=== PATIENT | male | born 1960 | race Two or more races ===

== ENCOUNTER 2017-06-20 00:03 | Inpatient (IN) | payer MEDICAID, OTHER ==
[~2017-06-20] VITALS: Ht 180.3 cm; Wt 96.2 kg
--- NOTE | 2017-06-20 00:20 | NUR ---
PT BIB RA WITH A C/O GI BLEED. PT STATED THAT IT STARTED 3 DAYS AGO AND NOW GETTING WORSE. PER PT, SABRA BLOOD NOTED IN STOOL. PT AMBULATED TO BED #12 AND WAS TRIAGED. PT WAS PLACED ON THE MONITOR AND CONTINUOUS PULSE OX. 18G IV STARTED IN [facility] AND BLOOD WAS DRAWN. SAMPLES SENT TO LAB. PT APPEARS PALE AND WEAK.
[2017-06-20] MEDS ORDERED: IV NS 0.9% 1,000 ML BAG IV ONE (00:30)
--- NOTE | 2017-06-20 00:30 | NUR ---
PT STATED THAT HE HAD TO GO TO THE BATHROOM. PT WAS DISCONNECTED FROM THE MONITOR AND WAS ASSISTED TO THE BATHROOM. PT'S WENT INTO THE BATHROOM WITH THE PT.
[2017-06-20 00:36] LABS: BASOPHILS # (AUTO) 0.1 /CMM (0.0-0.2); BASOPHILS % (AUTO) 0.7 % (0.0-2.0); HEMATOCRIT 37 % (39-51); HEMOGLOBIN 12.4 g/dL (13.5-17.5); LYMPHOCYTES # (AUTO) 5.6 /CMM (0.8-4.8); LYMPHOCYTES % (AUTO) 49.3 % (20.0-44.0); MEAN CORPUSCULAR HGB CONC 34 g/dl (31.0-36.0); MEAN CORPUSCULAR VOLUME 84 fL (80-96); MONOCYTES # (AUTO) 0.9 /CMM (0.1-1.30); MONOCYTES % (AUTO) 7.8 % (2.0-12.0); NEUTROPHILS # (AUTO) 4.5 /CMM (1.8-8.9); NEUTROPHILS % (AUTO) 40.2 % (43.0-81.0); PLATELET COUNT (AUTO) 340 /CMM (150-450); RDW COEFFICIENT OF VARIATION 13.7 (11.5-15.0); RED BLOOD CELL COUNT(AUTO) 4.37 MIL/uL (4.5-6.0); WHITE BLOOD COUNT (AUTO) 11.3 K/uL (4.3-11.0)
[2017-06-20 00:50] LABS: INR 0.96 (0.87-1.13)
[2017-06-20 00:52] LABS: CREATININE 1.2 mg/dL (0.6-1.3); POTASSIUM 3.8 mmol/L (3.5-5.1)
[2017-06-20 00:56] LABS: ALBUMIN 3.6 g/dL (3.4-5.0); BILIRUBIN,DIRECT 0.1 mg/dL (0.0-0.2); BILIRUBIN,TOTAL 0.2 mg/dL (0.2-1.0); TOTAL PROTEIN, SERUM 7.6 g/dL (6.4-8.2)
[2017-06-20] MEDS ORDERED: PANTOPRAZOLE 40 MG VIAL ONE (00:57)
[2017-06-20] MEDS ORDERED: PANTOPRAZOLE 80 MG in IV NS 0.9% 500 ML IV PRN ×2 (01:00→03:00)
[2017-06-20] MEDS ORDERED: PANTOPRAZOLE 80 MG in IV NS 0.9% 100 ML IV ONE (01:00)
--- NOTE | 2017-06-20 01:30 | NUR ---
DR. FREEMAN CALLED. LEFT MESSAGE
[2017-06-20] MEDS ORDERED: MAGNESIUM HYDROXIDE 30 ML UDC PO PRN (03:00)
[2017-06-20] MEDS ORDERED: MAG HYDROX/AL HYDROX/SIMETH 30 ML UDC PO PRN (03:00)
[2017-06-20] MEDS ORDERED: Z GUARD REMEDY 2 OZ OINT TP PRN (03:00)
[2017-06-20] MEDS ORDERED: ONDANSETRON HCL/PF 4 MG/2 ML VIAL IVP PRN (03:00)
[2017-06-20] MEDS ORDERED: HYDROCODONE/APAP 5/325MG 1 EACH TABLET PO PRN (03:00)
[2017-06-20] MEDS ORDERED: ACETAMINOPHEN 325 MG TABLET PO PRN (03:00)
[2017-06-20] MEDS ORDERED: ZOLPIDEM TARTRATE 5 MG TABLET PO PRN (03:00)
[2017-06-20] MEDS ORDERED: hydrALAZINE HCL 25 MG TABLET PO PRN (03:00)
--- NOTE | 2017-06-20 03:17 | NUR ---
pt is going to nuclear medicine for scan
[2017-06-20] MEDS ORDERED: NS 0.9% IV PRN (03:20)
[2017-06-20] MEDS ORDERED: PANTOPRAZOLE IV PRN (03:20)
[2017-06-20] MEDS ORDERED: HEPARIN SODIUM, PORCINE 5000 UNITS/1 ML VIAL ONE (03:33)
--- NOTE | 2017-06-20 03:38 | NUR ---
100 units Heparin pulled up in syringe for Nuclear study and given to [facility].
[2017-06-20] MEDS ORDERED: HEPARIN-LOCK FLUSH PORCINE PF 10 UNITS/1 ML (10 ML)DISP.SYRIN IV ONE (04:00)
[2017-06-20 05:45] VITALS: BP 147/88
--- NOTE | 2017-06-20 05:45 | NUR ---
PT RETURNED FROM THE NUCLEAR MEDICINE STUDY VIA GURNEY. PT WAS THEN TRANSPORTED TO ROOM 118-2 PER PROTOCOL.
--- NOTE | 2017-06-20 05:45 | NUR ---
GENERAL LEDGER BOOKKEEPER ADMITTING NOTES: ADMITTED A 57 YO MALE PATIENT WHO WAS SEEN IN THE ER DUE TO SABRA/ BRIGHT RED BLOODY STOOLS FOR THE PAST 3 DAYS. PATIENT WAS BROUGHT TO TELE FLOOR VIA RADHA YAÑEZ, ON ROOM AIR, BREATHING EVEN AND UNLABORED. BREATH SOUNDS CLEAR TO AUSCULTATION. ON TELE MONITOR: SINUS RHYTHM AT RATE OF 64. PATIENT APPEARS CALM AND IN NO DISTRESS. DENIES PAIN OR DIZZINESS, ONLY COMPLAINS OF BEING HUNGRY. PIV OVER RAC G 18 INTACT AND INFUSING WELL WITH PROTONIX DRIP (80 MG CONCENTRATION) RUNNING AT 25 ML/HR, STARTED IN ER. PATIENT HAS ANOTHER PIV OVER LAC G 20 INTACT AND PATENT TO FLUSH. ADMITTING CARE DONE. PROVIDED FOR COMFORT AND SAFETY. BED IN LOWEST AND LOCKED POSITION, SIDERAILS UP X 3, CALL LIGHT WITHIN REACH. MAINTAINED ON CLEAR LIQS. GIRLFRIEND/ POA RANI AT BEDSIDE. WILL CONT TO MONITOR.
[2017-06-20 06:00] VITALS: BP 147/88
[2017-06-20] MEDS: IV NS 0.9% 1,000 ML IV PRN (06:01)
--- NOTE | 2017-06-20 06:51 | NUR ---
LITURGICAL MUSIC DIRECTOR CLOSING NOTES: PATIENT IN BED, AOX4, ON ROOM AIR, BREATHING EVEN AND UNLABORED. APPEARS CALM AND IN NO DISTRESS, DENIES PAIN. ON TELE MONITORING: SR AT RATE OF 60S. PIV OVER RAC G18 INTACT AND INFUSING WELL WITH NS RUNNING AT 75 ML/HR AND NS RUNNING AT 75 ML/HR. MAINTAINED ON BEDREST. PROVIDED FOR COMFORT AND SAFETY. BED IN LOWEST AND LOCKED POSITION, SIDERAILS UP X 3, CALL LIGHT WITHIN REACH. WILL ENDORSE TO AM RN FOR SHAHZAD.
--- NOTE | 2017-06-20 07:12 | NUR ---
RN INITIAL NOTES: REC'D PT ASLEEP ON BED, A/O X 4, EASILY AROUSABLE. ON ROOM AIR, NOT IN ANY RESPIRATORY DISTRESS. ON TELEMONITOR, SR 64BPM. HAS 2 IV LINE ACCESS: R AC G18, PL W/ NS X 75 CC/HR AND PROTONIX DRIP X 25 CC/HR INFUSING WELL. L AC G20, SL FLUSHING WELL, BOTH NO S/SX OF INFECTION/INFILTRATION NOTED. PROVIDED COMFORT & SAFETY MEASURES. BED KEPT LOW & IN LOCKED POS. CALL LIGHT PLACED W/IN REACH. WILL CONTINUE TO MONITOR & ATTEND PT NEEDS.
[2017-06-20 08:00] VITALS: BP 155/75
[2017-06-20] MEDS ORDERED: MAGNESIUM CITRATE 296 ML BOTTLE PO ONE (10:30)
[2017-06-20] MEDS ORDERED: NA PHOS,M-B/NA PHOS,DI-BA 1 EA ENEMA RC PRN (10:30)
[2017-06-20] MEDS ORDERED: PEG 3350/NA SULF,BICARB,CL/KCL 4,000 ML BOTTLE PO ONE (10:30)
--- NOTE | 2017-06-20 10:30 | NUR ---
RN NOTES: CARRIED OUT ORDERS FROM RADHA COLLINS. PT FOR EGD & COLONOSCOPY. CONSENT SIGNED BY PT W/ VERBALIZATION OF UNDERSTANDING ABOUT THE PROCEDURE. BOWEL PREPARATION STARTED. INSTRUCTED PT NEED TO FINISH BOWEL PREP MEDS BEFORE 2PM. CXR, ECG & UA ORDERED STAT W/ KARINA'S APPROVAL, IN PREP FOR PROCEDURE.
[2017-06-20 11:38] LABS: BASOPHILS # (AUTO) 0.1 /CMM (0.0-0.2); BASOPHILS % (AUTO) 0.7 % (0.0-2.0); EOSINOPHILS % (AUTO) 1.3 % (0.0-6.0); HEMATOCRIT 31 % (39-51); HEMOGLOBIN 10.4 g/dL (13.5-17.5); LYMPHOCYTES # (AUTO) 3.5 /CMM (0.8-4.8); LYMPHOCYTES % (AUTO) 40.6 % (20.0-44.0); MEAN CORPUSCULAR HGB CONC 34 g/dl (31.0-36.0); MEAN CORPUSCULAR VOLUME 83 fL (80-96); MONOCYTES # (AUTO) 0.6 /CMM (0.1-1.30); MONOCYTES % (AUTO) 7.4 % (2.0-12.0); NEUTROPHILS # (AUTO) 4.3 /CMM (1.8-8.9); PLATELET COUNT (AUTO) 283 /CMM (150-450); RDW COEFFICIENT OF VARIATION 13.6 (11.5-15.0); RED BLOOD CELL COUNT(AUTO) 3.68 MIL/uL (4.5-6.0); WHITE BLOOD COUNT (AUTO) 8.6 K/uL (4.3-11.0)
[2017-06-20 12:33] LABS: IRON, SERUM 45 ug/dl (50-175); TOTAL IRON BINDING CAPACITY 347 ug/dl (250-450)
--- NOTE | 2017-06-20 13:00 | NUR ---
RN NOTES: PT SEEN & EXAMINED BY RADHA COLLINS. PER INSPECTOR WATCH PARTS ECG/COLONOSCOPY SCHED TOMORROW AM AT 0730h. PT & FAMILY ARE AWARE. OKAY TO ORDER CLEAR LIQUID DIET FOR NOW THEN NPO POST MN. CONTINUE BOWEL PREP & NOTIFY INSPECTOR WATCH PARTS IF PT'S BM STILL NOT CLEAR DESPITE OF MAG CITRATE & GOLYTELY. GIVE PRN FLEET ENEMA IF STILL NOT CLEAR.
[2017-06-20 13:21] LABS: APPEARANCE,URINE CLEAR (CLEAR); BILIRUBIN,URINE NEGATIVE (NEGATIVE); BLOOD, URINE NEGATIVE Ery/uL (NEGATIVE); COLOR,URINE YELLOW (YELLOW); KETONES,URINE NEGATIVE (NEGATIVE); LEUKOCYTE ESTERASE ,URINE NEGATIVE (NEGATIVE); NITRITE, URINE NEGATIVE (NEGATIVE); PROTEIN,URINE NEGATIVE (NEGATIVE); UGLUCOSE NEGATIVE (NEGATIVE); UROBILINOGEN,URINE 0.2 EU/dL (0.2)
[2017-06-20] MEDS: PANTOPRAZOLE 40 MG VIAL IV SCH (13:33)
[2017-06-20 15:18] LABS: BASOPHILS % (AUTO) 0.4 % (0.0-2.0); EOSINOPHILS % (AUTO) 1.8 % (0.0-6.0); HEMATOCRIT 29 % (39-51); HEMOGLOBIN 9.8 g/dL (13.5-17.5); LYMPHOCYTES # (AUTO) 3.2 /CMM (0.8-4.8); MEAN CORPUSCULAR HGB CONC 34 g/dl (31.0-36.0); MEAN CORPUSCULAR VOLUME 84 fL (80-96); MONOCYTES # (AUTO) 0.6 /CMM (0.1-1.30); MONOCYTES % (AUTO) 7.2 % (2.0-12.0); NEUTROPHILS # (AUTO) 4.2 /CMM (1.8-8.9); NEUTROPHILS % (AUTO) 51.6 % (43.0-81.0); PLATELET COUNT (AUTO) 257 /CMM (150-450); RDW COEFFICIENT OF VARIATION 13.5 (11.5-15.0); RED BLOOD CELL COUNT(AUTO) 3.48 MIL/uL (4.5-6.0); WHITE BLOOD COUNT (AUTO) 8.1 K/uL (4.3-11.0)
[2017-06-20 15:57] LABS: OCCULT BLOOD STOOL NEGATIVE (NEGATIVE)
[2017-06-20 16:00] VITALS: BP 161/93
--- NOTE | 2017-06-20 18:49 | NUR ---
RN CLOSING NOTES: NO ACUTE CHANGES NOTED W/IN SHIFT. PT TOLERATED ROOM AIR, NOT IN ANY RESPIRATORY DISTRESS. OFF TELEMONITOR. 2 IV LINE ACCESS BOTH KEPT PATENT & INTACT: L AC G20, SL & R AC G18, PL W/ NS X 75 CC/HR (PT REFUSED TO BE CONNECTED ON IVF AT THIS TIME). PT INSTRUCTED TO BE NPO POST MN D/T SCHED EGD & COLONOSCOPY JUAN CARLOS AM. PT ALSO INSTRUCTED TO FINISH GOLYTELY AND TO INFORM RN RE: BM IF CLEAR OR NOT. PT VERBALIZED UNDERSTANDING. KEPT WELL RESTED. NEEDS ATTENDED. BED KEPT LOW & IN LOCKED POS. CALL LIGHT PLACED W/IN REACH. WILL ENDORSE TO PM RN FOR SHAHZAD.
[2017-06-20 20:00] VITALS: BP_SYST 134; BP_SYST 154; BP_DIAS 78; BP_DIAS 87
--- NOTE | 2017-06-20 20:00 | NUR ---
RN NOTES PATIENT IS ALERT AND ORIENTED X4, CALM, NO SOB, ON ROOM AIR, NO COMPLAIN OF PAIN, GOING IN AND OUT OF TOILET, ON ELSY FOR EGD/COLONOSCOPY IN AM FOR GI BLEEDING, HAS CBC Q4HRS, PENDING ORDER OF BLOOD TRANSFUSION IF HGB < 9, RECENT HGB IS 10.3. NPO AFTER MIDNIGHT, EDUCATED PATIENT AND SPOUSE REGARDING DIET RESTRICTIONS. NEEDS ATTENDED, CALL LIGHT WITHIN REACH.
[2017-06-20 20:08] LABS: BASOPHILS # (AUTO) 0.1 /CMM (0.0-0.2); BASOPHILS % (AUTO) 0.9 % (0.0-2.0); EOSINOPHILS % (AUTO) 1.8 % (0.0-6.0); HEMATOCRIT 30 % (39-51); HEMOGLOBIN 10.3 g/dL (13.5-17.5); LYMPHOCYTES # (AUTO) 3.4 /CMM (0.8-4.8); LYMPHOCYTES % (AUTO) 41.3 % (20.0-44.0); MEAN CORPUSCULAR HGB CONC 35 g/dl (31.0-36.0); MEAN CORPUSCULAR VOLUME 83 fL (80-96); MONOCYTES # (AUTO) 0.6 /CMM (0.1-1.30); MONOCYTES % (AUTO) 7.4 % (2.0-12.0); NEUTROPHILS # (AUTO) 4.1 /CMM (1.8-8.9); NEUTROPHILS % (AUTO) 48.6 % (43.0-81.0); PLATELET COUNT (AUTO) 265 /CMM (150-450); RDW COEFFICIENT OF VARIATION 12.6 (11.5-15.0); RED BLOOD CELL COUNT(AUTO) 3.56 MIL/uL (4.5-6.0); WHITE BLOOD COUNT (AUTO) 8.3 K/uL (4.3-11.0)
[2017-06-21 00:38] LABS: BASOPHILS % (AUTO) 0.6 % (0.0-2.0); EOSINOPHILS % (AUTO) 1.8 % (0.0-6.0); HEMATOCRIT 27 % (39-51); LYMPHOCYTES # (AUTO) 3.1 /CMM (0.8-4.8); MEAN CORPUSCULAR HGB CONC 33 g/dl (31.0-36.0); MEAN CORPUSCULAR VOLUME 83 fL (80-96); MONOCYTES # (AUTO) 0.5 /CMM (0.1-1.30); MONOCYTES % (AUTO) 7.5 % (2.0-12.0); NEUTROPHILS # (AUTO) 3.2 /CMM (1.8-8.9); NEUTROPHILS % (AUTO) 46.1 % (43.0-81.0); PLATELET COUNT (AUTO) 258 /CMM (150-450); RDW COEFFICIENT OF VARIATION 13.6 (11.5-15.0); RED BLOOD CELL COUNT(AUTO) 3.26 MIL/uL (4.5-6.0)
[2017-06-21] MEDS: IV NS 0.9% 1,000 ML IV PRN (04:04)
[2017-06-21 04:54] LABS: BASOPHILS % (AUTO) 0.5 % (0.0-2.0); EOSINOPHILS % (AUTO) 1.9 % (0.0-6.0); HEMATOCRIT 28 % (39-51); HEMOGLOBIN 9.5 g/dL (13.5-17.5); LYMPHOCYTES # (AUTO) 2.9 /CMM (0.8-4.8); MEAN CORPUSCULAR HGB CONC 34 g/dl (31.0-36.0); MEAN CORPUSCULAR VOLUME 84 fL (80-96); MONOCYTES # (AUTO) 0.5 /CMM (0.1-1.30); MONOCYTES % (AUTO) 7.1 % (2.0-12.0); NEUTROPHILS # (AUTO) 3.2 /CMM (1.8-8.9); NEUTROPHILS % (AUTO) 47.5 % (43.0-81.0); PLATELET COUNT (AUTO) 263 /CMM (150-450); RDW COEFFICIENT OF VARIATION 13.8 (11.5-15.0); RED BLOOD CELL COUNT(AUTO) 3.37 MIL/uL (4.5-6.0); WHITE BLOOD COUNT (AUTO) 6.8 K/uL (4.3-11.0)
[2017-06-21 05:12] LABS: MAGNESIUM 2.1 mg/dL (1.8-2.4); PHOSPHORUS 2.8 mg/dL (2.5-4.9); POTASSIUM 3.8 mmol/L (3.5-5.1)
--- NOTE | 2017-06-21 06:28 | NUR ---
RN NOTES Patient is alert and awake, no SOB, no complain of pain, completed Goliltetly, having bowel movements, last BM is clear, no bleeding noted. CBC draw q4hrs, last CBC was 0430, hgb of 9.5. Did not meet parameter for blood transfusion. Consents signed, checklist in chart. Needs attended, call light within reach. Family member at the bedside.
[2017-06-21 08:00] VITALS: BP 147/88
--- NOTE | 2017-06-21 08:00 | NUR ---
MS RN INITIAL NOTES PATIENT RECEIVED IN BED IS ALERT AND ORIENTED X4, CALM, NO SOB, ON ROOM AIR, NO COMPLAIN OF PAIN, AT BEDSIDE, ELSY COMPLETE AND CONSENTS/CHECKLIST COMPLETE PRN PM RN FOR EGD/COLONOSCOPY FOR GI BLEEDING, PT HAS CBC Q4HRS, PENDING ORDER OF BLOOD TRANSFUSION IF HGB < 9, RECENT HGB IS 9.5. PT HAS BEEN NPO SINCE MIDNIGHT, AT BEDSIDE. NEEDS ATTENDED, CALL LIGHT WITHIN REACH.RN WILL CONTINUE TO FOLLOW THROUGHOUT THE DAY
[2017-06-21 09:19] LABS: BASOPHILS # (AUTO) 0.1 /CMM (0.0-0.2); BASOPHILS % (AUTO) 0.8 % (0.0-2.0); EOSINOPHILS % (AUTO) 1.3 % (0.0-6.0); HEMATOCRIT 30 % (39-51); LYMPHOCYTES # (AUTO) 2.2 /CMM (0.8-4.8); LYMPHOCYTES % (AUTO) 31.8 % (20.0-44.0); MEAN CORPUSCULAR HGB CONC 34 g/dl (31.0-36.0); MEAN CORPUSCULAR VOLUME 84 fL (80-96); MONOCYTES # (AUTO) 0.4 /CMM (0.1-1.30); NEUTROPHILS # (AUTO) 4.2 /CMM (1.8-8.9); NEUTROPHILS % (AUTO) 60.1 % (43.0-81.0); PLATELET COUNT (AUTO) 258 /CMM (150-450); RDW COEFFICIENT OF VARIATION 13.8 (11.5-15.0); RED BLOOD CELL COUNT(AUTO) 3.55 MIL/uL (4.5-6.0); WHITE BLOOD COUNT (AUTO) 6.9 K/uL (4.3-11.0)
[2017-06-21 12:45] LABS: BASOPHILS % (AUTO) 0.6 % (0.0-2.0); EOSINOPHILS % (AUTO) 1.4 % (0.0-6.0); HEMATOCRIT 30 % (39-51); HEMOGLOBIN 9.8 g/dL (13.5-17.5); LYMPHOCYTES # (AUTO) 2.3 /CMM (0.8-4.8); LYMPHOCYTES % (AUTO) 36.4 % (20.0-44.0); MEAN CORPUSCULAR HGB CONC 33 g/dl (31.0-36.0); MEAN CORPUSCULAR VOLUME 87 fL (80-96); MONOCYTES # (AUTO) 0.4 /CMM (0.1-1.30); MONOCYTES % (AUTO) 6.7 % (2.0-12.0); NEUTROPHILS # (AUTO) 3.5 /CMM (1.8-8.9); NEUTROPHILS % (AUTO) 54.9 % (43.0-81.0); PLATELET COUNT (AUTO) 273 /CMM (150-450); RED BLOOD CELL COUNT(AUTO) 3.41 MIL/uL (4.5-6.0); WHITE BLOOD COUNT (AUTO) 6.4 K/uL (4.3-11.0)
[2017-06-21] MEDS: PANTOPRAZOLE 40 MG VIAL IV SCH (13:06)
[2017-06-21 16:06] LABS: BASOPHILS % (AUTO) 0.5 % (0.0-2.0); EOSINOPHILS % (AUTO) 0.9 % (0.0-6.0); HEMATOCRIT 31 % (39-51); HEMOGLOBIN 10.5 g/dL (13.5-17.5); LYMPHOCYTES # (AUTO) 3.2 /CMM (0.8-4.8); LYMPHOCYTES % (AUTO) 39.5 % (20.0-44.0); MEAN CORPUSCULAR HGB CONC 34 g/dl (31.0-36.0); MEAN CORPUSCULAR VOLUME 83 fL (80-96); MONOCYTES # (AUTO) 0.6 /CMM (0.1-1.30); MONOCYTES % (AUTO) 6.8 % (2.0-12.0); NEUTROPHILS # (AUTO) 4.3 /CMM (1.8-8.9); NEUTROPHILS % (AUTO) 52.3 % (43.0-81.0); PLATELET COUNT (AUTO) 303 /CMM (150-450); RDW COEFFICIENT OF VARIATION 13.2 (11.5-15.0); RED BLOOD CELL COUNT(AUTO) 3.72 MIL/uL (4.5-6.0); WHITE BLOOD COUNT (AUTO) 8.2 K/uL (4.3-11.0)
--- NOTE | 2017-06-21 19:00 | NUR ---
RN NOTE PATIENT CURRENTLY NOT ON THE UNI DUE TO EDG / COLONOSCOPY , PATIENT HAS BEEN STABLE THROUGHOUT THE DAY ABLE TO MAKE NEEDS KNOWN PATIENT REMAINED NPO THROUGHOUT THE DAY. CONTINUATION OF CARE WILL BE GIVEN TO PM RN.
--- NOTE | 2017-06-21 19:49 | NUR ---
patient in egd Addendum: 06/21/17 at 1950 by JOANN GONZALEZ RN Amended: Links added.
[2017-06-21 20:00] VITALS: BP 134/78
--- NOTE | 2017-06-21 20:00 | NUR ---
MS-1/BUFFING WHEEL FORMER AUTOMATIC PT BACK FROM EGD AWAITING RESULTS. ADVANCE DIET. VSS. NO COMPLAINT OF PAIN OR DISCOMFORT. PT VISITING WITH FAMILY. WILL CONTINUE TO MONITOR CLOSELY.
[2017-06-21 20:42] LABS: BASOPHILS % (AUTO) 0.3 % (0.0-2.0); HEMATOCRIT 30 % (39-51); HEMOGLOBIN 10.1 g/dL (13.5-17.5); LYMPHOCYTES # (AUTO) 3.4 /CMM (0.8-4.8); LYMPHOCYTES % (AUTO) 34.5 % (20.0-44.0); MEAN CORPUSCULAR HGB CONC 34 g/dl (31.0-36.0); MEAN CORPUSCULAR VOLUME 84 fL (80-96); MONOCYTES # (AUTO) 0.7 /CMM (0.1-1.30); MONOCYTES % (AUTO) 6.9 % (2.0-12.0); NEUTROPHILS # (AUTO) 5.6 /CMM (1.8-8.9); NEUTROPHILS % (AUTO) 57.3 % (43.0-81.0); PLATELET COUNT (AUTO) 302 /CMM (150-450); RDW COEFFICIENT OF VARIATION 13.7 (11.5-15.0); RED BLOOD CELL COUNT(AUTO) 3.52 MIL/uL (4.5-6.0); WHITE BLOOD COUNT (AUTO) 9.7 K/uL (4.3-11.0)
[2017-06-22 04:00] VITALS: BP 127/90
[2017-06-22 04:06] VITALS: BP 127/90
--- NOTE | 2017-06-22 07:15 | NUR ---
REPORT RECEIVED AT THE BEDSIDE. PATIENT IS SITTING UP IN BED. REPORTS NO PAIN, ASKS TO GO HOME SOON POSSIBLE. INFORMED PATIENT THE DOCTOR WILL BE IN TO SEE HIM THIS MORNING AND WILL ADVISE ON DISCHARGE. BED IN A LOW POSITION, FAMILY IS AT THE BEDSIDE. WILL MONITOR.
--- NOTE | 2017-06-22 07:54 | NUR ---
PT STILL REFUSING IV FLUIDS. PO INTAKE GOOD.
[2017-06-22 08:00] VITALS: BP 158/82
[2017-06-22 08:17] LABS: CALCIUM, SERUM 8.1 mg/dL (8.5-10.1); CREATININE 1.1 mg/dL (0.6-1.3); POTASSIUM 3.8 mmol/L (3.5-5.1)
--- NOTE | 2017-06-22 12:51 | NUR ---
WENT TO PT ROOM FOR ROUNDING AND TO INFORM HIM OF PROTONIX DOSE. PT STATES "NO PLEASE. NO MORE MEDICATIONS. I AM READY TO GO HOME. NOTHING ELSE UNTIL I SEE THE DOCTOR."
[2017-06-22] MEDS: PANTOPRAZOLE 40 MG VIAL IV SCH (13:00)
--- NOTE | 2017-06-22 13:55 | NUR ---
DISCHARGE INSTRUCTIONS GIVEN TO THE PATIENT AND ABLE TO UNDERSTAND. ALL PAPERWORK SIGNED AND BELONGINGS ACCOUNTED FOR. PATIENT GIVEN INFORMATION TO FOLLOW UP WITH DR FREEMAN. IVS REMOVED AND PRESSURE APPLIED, NO BLEEDING NOTED AT THE SITE. PATIENT DOES NOT NEED PNEUMONIA SHOT AND FLU SHOT OUT OF [place]. NO PICTURES NEEDED, SKIN INTACT. PATIENT LEFT IN STABLE CONDITION, VIA PRIVATE CAR TO HOME. AMBULATORY, NO ASSISTANCE NEEDED. NO SOB OR DISTRESS, PATIENT DENIES PAIN.
== END 2017-06-22 14:16 | disposition home or self-care (01) | DRG 254 ==
LOC: ER 00:05 → TELE-TD 03:10 → TELE1 05:52 → MEDSG1 11:24
PROVIDERS: ADMIT Internal Medicine; ATTEND Internal Medicine
PROC: 0DB68ZX Excision of Stomach, Via Natural or Artificial Opening Endoscopic, Diagnostic (ICD-10-PCS; principal; 2017-06-21 18:36)
PROC: 0DBK8ZZ Excision of Ascending Colon, Via Natural or Artificial Opening Endoscopic (ICD-10-PCS; principal; 2017-06-21 18:36)
PROC: 0DB58ZX Excision of Esophagus, Via Natural or Artificial Opening Endoscopic, Diagnostic (ICD-10-PCS; principal; 2017-06-21 18:36)
DX: K64.0 First degree hemorrhoids (principal); N17.0 Acute kidney failure with tubular necrosis; I10 Essential (primary) hypertension; D62 Acute posthemorrhagic anemia; D72.829 Elevated white blood cell count, unspecified; K57.30 Diverticulosis of large intestine without perforation or abscess without bleeding; E66.9 Obesity, unspecified; F17.210 Nicotine dependence, cigarettes, uncomplicated; Z68.29 Body mass index [BMI] 29.0-29.9, adult; K21.0 Gastro-esophageal reflux disease with esophagitis; K29.70 Gastritis, unspecified, without bleeding; K63.5 Polyp of colon
CPT/HCPCS: 36415; 71045-TC; 80048-TC; 80061-TC; 80076-TC; 81000-TC; 82272-TC; 83540-TC; 83690-TC; 83735-TC; 84100-TC; 84484-TC; 85025-TC; 85730-TC; 86850-TC; 86921-TC; 87081-TC; 88305-TC; 88313-TC; 88342; A4606; A9560; C9113; J1642; J1644; J2704; J7030; J7050; Z7610

== ENCOUNTER 2017-06-23 09:40 | Inpatient (IN) | payer MEDICAID ==
[~2017-06-23] VITALS: Ht 180.3 cm; Wt 98.4 kg
[2017-06-23] MEDS ORDERED: IV NS 0.9% 500 ML IV ONE (10:20)
[2017-06-23] MEDS ORDERED: IOHEXOL-300 100 ML VIAL IV ONE (10:20)
[2017-06-23 10:25] LABS: BASOPHILS # (AUTO) 0.2 /CMM (0.0-0.2); BASOPHILS % (AUTO) 2.2 % (0.0-2.0); EOSINOPHILS % (AUTO) 0.9 % (0.0-6.0); HEMATOCRIT 25 % (39-51); HEMOGLOBIN 8.4 g/dL (13.5-17.5); LYMPHOCYTES # (AUTO) 2.1 /CMM (0.8-4.8); LYMPHOCYTES % (AUTO) 22.1 % (20.0-44.0); MEAN CORPUSCULAR HGB CONC 34 g/dl (31.0-36.0); MEAN CORPUSCULAR VOLUME 84 fL (80-96); MONOCYTES # (AUTO) 0.6 /CMM (0.1-1.30); NEUTROPHILS # (AUTO) 6.5 /CMM (1.8-8.9); NEUTROPHILS % (AUTO) 68.8 % (43.0-81.0); PLATELET COUNT (AUTO) 258 /CMM (150-450); RDW COEFFICIENT OF VARIATION 13.1 (11.5-15.0); RED BLOOD CELL COUNT(AUTO) 2.96 MIL/uL (4.5-6.0); WHITE BLOOD COUNT (AUTO) 9.5 K/uL (4.3-11.0)
[2017-06-23 10:35] LABS: POTASSIUM 4.1 mmol/L (3.5-5.1)
--- NOTE | 2017-06-23 10:35 | NUR ---
RFA #20 IV ACCESS. BLOOD SENT TO LAB
--- NOTE | 2017-06-23 10:35 | NUR ---
PT TAKEN TO CT
[2017-06-23 10:39] LABS: INR 0.93 (0.85-1.15)
--- NOTE | 2017-06-23 11:42 | NUR ---
CALLED [employer] RED LEADER WAS PAGED.
[2017-06-23] MEDS ORDERED: ONDANSETRON HCL/PF 4 MG/2 ML VIAL IVP PRN (12:00)
[2017-06-23] MEDS ORDERED: MAGNESIUM HYDROXIDE 30 ML UDC PO PRN (12:00)
[2017-06-23] MEDS ORDERED: MAG HYDROX/AL HYDROX/SIMETH 30 ML UDC PO PRN (12:00)
[2017-06-23] MEDS ORDERED: ACETAMINOPHEN 325 MG TABLET PO PRN (12:00)
--- NOTE | 2017-06-23 12:08 | NUR ---
[facility] mundo montes NP admitting.
[2017-06-23] MEDS ORDERED: FENTANYL PF 100MCG/2ML AMPUL IV PRN (12:30)
--- NOTE | 2017-06-23 12:30 | NUR ---
MS RN OPENING NOTES RECEIVED PATIENT IN STABLE CONDITION. IN NO APPARENT DISTRESS. BEDSIDE RAILS ARE UPX2. BED IS LOCKED AND LOWERED. CALL LIGHT IS WITHIN REACH. WILL CONTINUE TO MONITOR.
[2017-06-23] MEDS: IV D5/0.45 NACL 1,000 ML IV PRN (13:09)
--- NOTE | 2017-06-23 14:27 | NUR ---
IV LINE IS INTACT. PATIENT HAS NO WOUNDS.
[2017-06-23 15:06] LABS: BASOPHILS % (AUTO) 0.4 % (0.0-2.0); EOSINOPHILS % (AUTO) 0.5 % (0.0-6.0); HEMATOCRIT 21 % (39-51); HEMOGLOBIN 7.1 g/dL (13.5-17.5); LYMPHOCYTES # (AUTO) 3.1 /CMM (0.8-4.8); MEAN CORPUSCULAR HGB CONC 34 g/dl (31.0-36.0); MEAN CORPUSCULAR VOLUME 83 fL (80-96); MONOCYTES # (AUTO) 0.6 /CMM (0.1-1.30); MONOCYTES % (AUTO) 6.4 % (2.0-12.0); NEUTROPHILS # (AUTO) 6.2 /CMM (1.8-8.9); NEUTROPHILS % (AUTO) 61.7 % (43.0-81.0); PLATELET COUNT (AUTO) 259 /CMM (150-450); RDW COEFFICIENT OF VARIATION 13.9 (11.5-15.0); RED BLOOD CELL COUNT(AUTO) 2.53 MIL/uL (4.5-6.0)
[2017-06-23] MEDS: DOCUSATE SODIUM 100 MG CAPSULE PO SCH (16:54)
--- NOTE | 2017-06-23 18:15 | NUR ---
PATIENT WAS TAKEN TO NUCLEAR MEDICINE
--- NOTE | 2017-06-23 18:31 | NUR ---
MS RN CLOSING NOTES PATIENT WAS TAKEN TO NUCLEAR MEDICINE AT 1815. WILL ENDORSE CARE TO GRAVES REGISTRATION SPECIALIST NURSE FOR SHAHZAD.
[2017-06-23] MEDS ORDERED: HEPARIN-LOCK FLUSH PORCINE PF 100 UNITS/1 ML (10 ML)DISP.SYRIN IV ONE (19:00)
[2017-06-23 20:00] VITALS: BP 147/90
--- NOTE | 2017-06-23 20:00 | NUR ---
RECIVED MR SILVER WITH FAMILY AT THE BEDSIDE. HE IS EATING HIS DINNER AND CONVERSING WITH HIS FAMILY HE IS MADE AWARE IF HE HAS A BM I NEED TO SEE
[2017-06-23 21:09] LABS: BASOPHILS % (AUTO) 0.5 % (0.0-2.0); EOSINOPHILS % (AUTO) 1.1 % (0.0-6.0); LYMPHOCYTES # (AUTO) 3.7 /CMM (0.8-4.8); LYMPHOCYTES % (AUTO) 39.7 % (20.0-44.0); MEAN CORPUSCULAR HGB CONC 34 g/dl (31.0-36.0); MEAN CORPUSCULAR VOLUME 84 fL (80-96); MONOCYTES # (AUTO) 0.8 /CMM (0.1-1.30); MONOCYTES % (AUTO) 8.4 % (2.0-12.0); NEUTROPHILS # (AUTO) 4.7 /CMM (1.8-8.9); NEUTROPHILS % (AUTO) 50.3 % (43.0-81.0); PLATELET COUNT (AUTO) 268 /CMM (150-450); RDW COEFFICIENT OF VARIATION 13.6 (11.5-15.0); WHITE BLOOD COUNT (AUTO) 9.4 K/uL (4.3-11.0)
[2017-06-23 21:16] LABS: HEMATOCRIT 19 % (39-51); HEMOGLOBIN 6.6 g/dL (13.5-17.5)
[2017-06-23 22:35] VITALS: BP 128/80
[2017-06-23 22:57] VITALS: BP 141/73
[2017-06-23 23:30] VITALS: BP 146/81
[2017-06-24] VITALS (21 sets, daily range): BP systolic 123–147; BP diastolic 65–88
--- NOTE | 2017-06-24 04:45 | NUR ---
PATIENT'S H/H 6. CALLED MADE TO MD MARSHALL, NEW ORDERS. TRANSFUSED 2 UNITS PRBCS W/O PROBLEMS/REACTIONS. NOTED PATIENT HAD A SMALL BM NOTED BLOODY IN COLOR. URINE CLEAR YELLOW. PATIENT NOT C/O SOB OR WEAKNESS.
[2017-06-24 06:51] LABS: BASOPHILS # (AUTO) 0.1 /CMM (0.0-0.2); BASOPHILS % (AUTO) 0.6 % (0.0-2.0); EOSINOPHILS % (AUTO) 1.2 % (0.0-6.0); HEMATOCRIT 24 % (39-51); HEMOGLOBIN 7.9 g/dL (13.5-17.5); LYMPHOCYTES # (AUTO) 3.5 /CMM (0.8-4.8); LYMPHOCYTES % (AUTO) 36.5 % (20.0-44.0); MEAN CORPUSCULAR HGB CONC 34 g/dl (31.0-36.0); MEAN CORPUSCULAR VOLUME 86 fL (80-96); MONOCYTES # (AUTO) 0.8 /CMM (0.1-1.30); MONOCYTES % (AUTO) 7.8 % (2.0-12.0); NEUTROPHILS # (AUTO) 5.2 /CMM (1.8-8.9); NEUTROPHILS % (AUTO) 53.9 % (43.0-81.0); PLATELET COUNT (AUTO) 228 /CMM (150-450); RDW COEFFICIENT OF VARIATION 14.5 (11.5-15.0); RED BLOOD CELL COUNT(AUTO) 2.73 MIL/uL (4.5-6.0); WHITE BLOOD COUNT (AUTO) 9.6 K/uL (4.3-11.0)
[2017-06-24 06:52] LABS: CALCIUM, SERUM 7.4 mg/dL (8.5-10.1); MAGNESIUM 1.7 mg/dL (1.8-2.4); PHOSPHORUS 3.2 mg/dL (2.5-4.9)
--- NOTE | 2017-06-24 07:25 | NUR ---
RN OPEN NOTES RECEIVED REPORT FROM AIR TRAFFIC SUPERVISOR NURSE. PATIENT IS IN BED. PATIENT IS ALERT AWAKE AND ORIENTED TO NAME, PLACE AND TIME. NO SIGNS AND SYMPTOMS OF DISTRESS. DENIED PAID. BED IN LOW POSITION, LOCKED AND TWO SIDE RAILS ARE UP . CALL LIGHT WITHIN REACH FOR SAFETY. WILL CONTINUE TO MONITOR PATIENT
[2017-06-24] MEDS: PANTOPRAZOLE 40 MG VIAL IV SCH (08:21)
[2017-06-24] MEDS: DOCUSATE SODIUM 100 MG CAPSULE PO SCH ×2 (08:22→16:42)
--- NOTE | 2017-06-24 08:30 | NUR ---
PATIENT REFUSED PROTONIX AND COLACE. [facility]
[2017-06-24] MEDS: Magnesium 1GM/D5W 100ML PREMIX 100 ML IV SCH ×2 (10:00→11:12)
[2017-06-24 12:15] LABS: BASOPHILS % (AUTO) 0.5 % (0.0-2.0); LYMPHOCYTES % (AUTO) 34.7 % (20.0-44.0); MEAN CORPUSCULAR HGB CONC 35 g/dl (31.0-36.0); MEAN CORPUSCULAR VOLUME 84 fL (80-96); MONOCYTES # (AUTO) 0.7 /CMM (0.1-1.30); MONOCYTES % (AUTO) 7.8 % (2.0-12.0); NEUTROPHILS # (AUTO) 4.8 /CMM (1.8-8.9); PLATELET COUNT (AUTO) 220 /CMM (150-450); RDW COEFFICIENT OF VARIATION 14.6 (11.5-15.0); RED BLOOD CELL COUNT(AUTO) 2.35 MIL/uL (4.5-6.0); WHITE BLOOD COUNT (AUTO) 8.6 K/uL (4.3-11.0)
[2017-06-24 12:47] LABS: HEMOGLOBIN 6.9 g/dL (13.5-17.5)
[2017-06-24 12:48] LABS: HEMATOCRIT 20 % (39-51)
--- NOTE | 2017-06-24 12:51 | NUR ---
CRITICAL LAB VALUES REPORTED BY LAB AT 12:48 CONTACTED NHEA KAUFFMAN NP AT [phone] --- PENDING REPLY / CALL BACK
--- NOTE | 2017-06-24 12:53 | NUR ---
NEHA KAUFFMAN REPLIED AND NEW ORDER RECEIVED
--- NOTE | 2017-06-24 13:00 | NUR ---
DR LYDIA COLLINS CONTROLS PROJECT ENGINEER NOTIFIED. PENDING REPLY
--- NOTE | 2017-06-24 13:03 | NUR ---
URINE SPECIMEN COLLECTED AND PUT IN THE REFRIGERATOR. LAB NOTIFIED
[2017-06-24] MEDS ORDERED: PEG 3350/NA SULF,BICARB,CL/KCL 4,000 ML BOTTLE PO ONE (13:30)
[2017-06-24] MEDS ORDERED: MAGNESIUM CITRATE 296 ML BOTTLE PO ONE (13:30)
[2017-06-24] MEDS ORDERED: NA PHOS,M-B/NA PHOS,DI-BA 1 EA ENEMA RC PRN (13:30)
[2017-06-24 16:44] LABS: EOSINOPHILS % (MANUAL) 1 % (0-4); LYMPHOCYTES % (MANUAL) 34 % (16-48); MONOCYTES % (MANUAL) 3 % (0-11.0); NEUTROPHILS % (MANUAL) 62 (42-76)
--- NOTE | 2017-06-24 17:17 | NUR ---
Readmitted less than 24hrs of discharged due to recurrent bloody stools. Patient is alert, lives at home with his girlfriend. He is ambulatory and independent with adl's. Will arrange his own transportation upon discharge Addendum: 06/24/17 at 1717 by MARLO DUGAN RN Amended: Links added.
--- NOTE | 2017-06-24 17:35 | NUR ---
BLOOD TRANSFUSION COMPLETED. PATIENT TOLERATED IT VERY WELL.
--- NOTE | 2017-06-24 17:50 | NUR ---
CALLED BLOOD BANK TO CHECK ON THE SECOND UNIT. BLOOD IS NOT READY. THEY WILL CALL BACK WHEN IT IS READY
--- NOTE | 2017-06-24 17:55 | NUR ---
LAB AT BEDSIDE TO DRAW BLOOD. UNABLE TO DRAW BLOOD DUE TO BLOOD TRANSFUSION ENDED AT 1735 AND THEY NEED AT LEAST AN HOUR AFTER BLOOD TRANSFUSION ENDED.
--- NOTE | 2017-06-24 18:33 | NUR ---
CONFIRMED BY LAB, BLOOD IS READY TO BE PICKED UP. WILL ENDORSE TO PHOTOCOMPOSING MACHINE OPERATOR NURSE
--- NOTE | 2017-06-24 19:27 | NUR ---
MS RN CLOSING NOTES PATIENT IS IN STABLE CONDITION. IN NO APPARENT DISTRESS. BEDSIDE RAILS ARE UPX2. IV LINE IS INTACT AND PATENT. BED IS LOCKED AND LOWERED. CALL LIGHT IS WITHIN REACH. WILL ENDORSE CARE TO REGULATOR TESTER NURSE FOR SHAHZAD.
--- NOTE | 2017-06-24 19:45 | NUR ---
MS RN NOTE RECEIVED PATIENT FROM DAY SHIFT, PATIENT IS ALERT AND ORIENTEDX4, AMBULATORY, NO S/S OF RESPIRATORY DISTRESS OR NO PAIN REPORTED. IV ON RIGHT FA IS PATENT AND INTACT, PT NEEDS TO GET 1PRBC TRANSFUSION, WILL HANG IT. SRX2, BED IN LOW POSITION, CALL LIGHT WITHIN REACH, WILL CONTINUE TO MONITOR PATIENT.
--- NOTE | 2017-06-24 21:12 | NUR ---
MS RN NOTE STARTED 1PRBC UNIT BLOOD, VS WNL. WILL MONITOR PATIENT.
--- NOTE | 2017-06-24 23:30 | NUR ---
MS RN NOTE BLOOD TRANSFUSION COMPLETED. NO ADVERSE REACTION NOTED. VS WNL. CALLED THE LAB FOR CBC IN AN HOUR.
[2017-06-25 00:48] LABS: BASOPHILS # (AUTO) 0.1 /CMM (0.0-0.2); BASOPHILS % (AUTO) 0.7 % (0.0-2.0); EOSINOPHILS % (AUTO) 1.8 % (0.0-6.0); HEMATOCRIT 21 % (39-51); HEMOGLOBIN 7.4 g/dL (13.5-17.5); LYMPHOCYTES # (AUTO) 3.2 /CMM (0.8-4.8); MEAN CORPUSCULAR HGB CONC 35 g/dl (31.0-36.0); MEAN CORPUSCULAR VOLUME 86 fL (80-96); MONOCYTES # (AUTO) 0.8 /CMM (0.1-1.30); MONOCYTES % (AUTO) 8.3 % (2.0-12.0); NEUTROPHILS # (AUTO) 5.4 /CMM (1.8-8.9); NEUTROPHILS % (AUTO) 56.2 % (43.0-81.0); PLATELET COUNT (AUTO) 198 /CMM (150-450); RDW COEFFICIENT OF VARIATION 13.3 (11.5-15.0); RED BLOOD CELL COUNT(AUTO) 2.46 MIL/uL (4.5-6.0); WHITE BLOOD COUNT (AUTO) 9.7 K/uL (4.3-11.0)
--- NOTE | 2017-06-25 01:46 | NUR ---
MS RN NOTE GOT THE RESULT OF CBC, HGB IS 7.4. PER STANDING ORDER, 1 UNIT PRBC ORDERED. WILL F/U WITH THE LAB.
[2017-06-25] MEDS: IV D5/0.45 NACL 1,000 ML IV PRN (02:18)
[2017-06-25 04:25] VITALS: BP 111/60
--- NOTE | 2017-06-25 04:29 | NUR ---
MS RN NOTE STARTED 1UNIT PRBC, VS WNL. WILL CONTINUE TO MONITOR PATIENT.
[2017-06-25 04:40] VITALS: BP 132/78
[2017-06-25] MEDS: AMOXICILLIN TRIHYDRATE 250 MG CAPSULE PO SCH ×3 (04:51→20:49)
[2017-06-25] MEDS: METRONIDAZOLE 500 MG TABLET PO SCH ×3 (04:51→20:49)
[2017-06-25 05:35] VITALS: BP 128/74
--- NOTE | 2017-06-25 07:18 | NUR ---
MS RN NOTE 2ND PRBC UNIT COMPLETED, NO ADVERSE REACTIONS NOTED. ENDORSE TO DAY SHIFT FOR SHAHZAD.
--- NOTE | 2017-06-25 07:20 | NUR ---
RN OPEN NOTES RECEIVED REPORT FROM SHEET METAL ASSEMBLER AND RIVETER NURSE. PATIENT IS IN BED, AWAKE AND ORIENTED TO NAME, PLACE AND TIME. AT BEDSIDE. BED IS IN LOW POSITION, LOCKED AND TWO SIDE RAILS ARE UP. CALL LIGHT WITHIN REACH FOR SAFETY. NO SIGNS AND SYMPTOMS OF DISTRESS. BLOOD TRANSFUSION CURRENTLY IN PROCESS, SHOULD END IN THE NEXT 10 MIN. WILL CONTINUE TO ASSESS AND MONITOR PATIENT
[2017-06-25 08:00] VITALS: BP 143/87
[2017-06-25] MEDS: DOCUSATE SODIUM 100 MG CAPSULE PO SCH ×2 (08:10→16:24)
[2017-06-25] MEDS: PANTOPRAZOLE 40 MG VIAL IV SCH (08:10)
[2017-06-25 08:40] LABS: BASOPHILS # (AUTO) 0.1 /CMM (0.0-0.2); BASOPHILS % (AUTO) 0.7 % (0.0-2.0); EOSINOPHILS % (AUTO) 1.5 % (0.0-6.0); HEMATOCRIT 27 % (39-51); HEMOGLOBIN 9.1 g/dL (13.5-17.5); LYMPHOCYTES # (AUTO) 2.6 /CMM (0.8-4.8); LYMPHOCYTES % (AUTO) 28.8 % (20.0-44.0); MEAN CORPUSCULAR HGB CONC 34 g/dl (31.0-36.0); MEAN CORPUSCULAR VOLUME 85 fL (80-96); MONOCYTES # (AUTO) 0.7 /CMM (0.1-1.30); MONOCYTES % (AUTO) 8.4 % (2.0-12.0); NEUTROPHILS # (AUTO) 5.4 /CMM (1.8-8.9); NEUTROPHILS % (AUTO) 60.6 % (43.0-81.0); PLATELET COUNT (AUTO) 242 /CMM (150-450); RDW COEFFICIENT OF VARIATION 14.4 (11.5-15.0); RED BLOOD CELL COUNT(AUTO) 3.13 MIL/uL (4.5-6.0); WHITE BLOOD COUNT (AUTO) 8.9 K/uL (4.3-11.0)
[2017-06-25 08:58] LABS: CALCIUM, SERUM 7.8 mg/dL (8.5-10.1); CREATININE 0.9 mg/dL (0.6-1.3); MAGNESIUM 2.1 mg/dL (1.8-2.4); POTASSIUM 3.9 mmol/L (3.5-5.1)
--- NOTE | 2017-06-25 09:00 | NUR ---
PATIENT REFUSED PROTONIX AND COLACE. RISK EXPLAINED TO PATIENT THREE TIMES
--- NOTE | 2017-06-25 11:19 | NUR ---
KARINA GARCIA CALLED. PATIENT WILL HAVE EGD WITH ENTEROSCOPY TODAY. PLACE PATIENT ON NPO EFFECTIVE IMMEDIATELY. HOLD PREP WELL. PREP CONSENT.
--- NOTE | 2017-06-25 11:30 | NUR ---
PATIENT SIGNED THE CONSENT FOR EGD AND PLACED ON NPO. PER KARINA, SHE WILL BE AT THE UNIT AT 2PM
[2017-06-25 12:50] LABS: BASOPHILS # (AUTO) 0.1 /CMM (0.0-0.2); BASOPHILS % (AUTO) 0.8 % (0.0-2.0); EOSINOPHILS % (AUTO) 1.7 % (0.0-6.0); HEMATOCRIT 24 % (39-51); HEMOGLOBIN 8.3 g/dL (13.5-17.5); LYMPHOCYTES # (AUTO) 2.9 /CMM (0.8-4.8); LYMPHOCYTES % (AUTO) 32.6 % (20.0-44.0); MEAN CORPUSCULAR HGB CONC 34 g/dl (31.0-36.0); MEAN CORPUSCULAR VOLUME 85 fL (80-96); MONOCYTES # (AUTO) 0.7 /CMM (0.1-1.30); MONOCYTES % (AUTO) 8.1 % (2.0-12.0); NEUTROPHILS % (AUTO) 56.8 % (43.0-81.0); PLATELET COUNT (AUTO) 240 /CMM (150-450); RDW COEFFICIENT OF VARIATION 14.4 (11.5-15.0); RED BLOOD CELL COUNT(AUTO) 2.85 MIL/uL (4.5-6.0); WHITE BLOOD COUNT (AUTO) 8.8 K/uL (4.3-11.0)
--- NOTE | 2017-06-25 14:00 | NUR ---
PATIENT LEFT FOR EGD
[2017-06-25] MEDS ORDERED: PEG 3350/NA SULF,BICARB,CL/KCL 4,000 ML BOTTLE PO ONE (14:30)
--- NOTE | 2017-06-25 15:10 | NUR ---
PATIENT IS BACK TO FLOOR.
[2017-06-25 16:00] VITALS: BP 126/85
--- NOTE | 2017-06-25 16:00 | NUR ---
CONFIRMED WITH RADHA COLLINS THAT A SECOND 4,000ML GOLYTLE IS NEEDED
[2017-06-25 18:17] LABS: BASOPHILS % (AUTO) 0.3 % (0.0-2.0); EOSINOPHILS % (AUTO) 1.5 % (0.0-6.0); HEMATOCRIT 25 % (39-51); HEMOGLOBIN 8.5 g/dL (13.5-17.5); LYMPHOCYTES # (AUTO) 2.8 /CMM (0.8-4.8); LYMPHOCYTES % (AUTO) 30.2 % (20.0-44.0); MEAN CORPUSCULAR HGB CONC 34 g/dl (31.0-36.0); MEAN CORPUSCULAR VOLUME 85 fL (80-96); MONOCYTES # (AUTO) 0.7 /CMM (0.1-1.30); MONOCYTES % (AUTO) 7.4 % (2.0-12.0); NEUTROPHILS # (AUTO) 5.5 /CMM (1.8-8.9); NEUTROPHILS % (AUTO) 60.6 % (43.0-81.0); PLATELET COUNT (AUTO) 271 /CMM (150-450); RDW COEFFICIENT OF VARIATION 14.5 (11.5-15.0); RED BLOOD CELL COUNT(AUTO) 2.94 MIL/uL (4.5-6.0); WHITE BLOOD COUNT (AUTO) 9.1 K/uL (4.3-11.0)
--- NOTE | 2017-06-25 18:59 | NUR ---
RN CLOSING NOTES PATIENT IS AWAKE AND RESTING AT BED. AND FAMILY AT BEDSIDE. BED IN LOW POSITION, LOCKED AND TWO SIDE RAILS ARE UP. CALL LIGHT WITHIN REACH FOR SAFETY. IV SITE IN INTACT AND PATENT. ORIENTED TO NAME, TIME AND PLACE. ON ROOM AIR, TOLERATING WELL WITH NO SHORTNESS OF BREATH NOTED. ALL NEEDS AND CARE ATTENDED. PATIENT KEPT CLEAN, DRY AND SAFE. ALL ENDORSE TO ENTERTAINMENT DANCER NURSE.
--- NOTE | 2017-06-25 19:30 | NUR ---
MS RN OPENING NOTES: PATIENT IN BED, AOX4, ON ROOM AIR, BREATHING EVEN AND UNLABORED, BREATH SOUNDS CLEAR TO AUSCULTATION. APPEARS CALM AND IN NO DISTRESS. DENIES PAIN. PATIENT HAS JUST HAD A BM, BUT FLUSHED IT ALREADY, STATES THAT IT IS NO LONGER BLOODY, BUT MORE LIQUID. PATIENT DRINKING GOLYTELY SOLUTION FOR COLONOSCOPY JUAN CARLOS AM, INSTRUCTED HIM TO CALL NURSE EVERY TIME HE HAS BM TO SEE IF BM IS CLEAR. ALSO INSTRUCTED RE NPO POST MIDNIGHT. PIV OVER RFA G 20 INTACT AND PATENT TO FLUSH ; PATIENT REFUSED TO BE HOOKED TO IV FLUID AT THIS TIME. PROVIDED FOR COMFORT AND SAFETY. BED IN LOWEST AND LOCKED POSITION, SIDERAILS UP X 2, CALL LIGHT WITHIN REACH. WILL CONT TO MONITOR.
[2017-06-25 20:00] VITALS: BP 146/87
--- NOTE | 2017-06-25 21:30 | NUR ---
RN NOTES: PATIENT COMPLIANT WITH GOLYTELY, SHOWED HIS RECENT BM, MOSTLY CLEAR WITH MINIMAL, SMALL FLECKS OF SOLID STOOL. ENCOURAGED TO CONTINUE GOLYTELY.
[2017-06-25 21:36] LABS: HEMATOCRIT 25 % (39-51); HEMOGLOBIN 8.4 g/dL (13.5-17.5); MEAN CORPUSCULAR HGB CONC 34 g/dl (31.0-36.0); MEAN CORPUSCULAR VOLUME 85 fL (80-96); PLATELET COUNT (AUTO) 270 /CMM (150-450); RED BLOOD CELL COUNT(AUTO) 2.88 MIL/uL (4.5-6.0); WHITE BLOOD COUNT (AUTO) 9.1 K/uL (4.3-11.0)
[2017-06-26 00:29] LABS: BASOPHILS % (AUTO) 0.4 % (0.0-2.0); EOSINOPHILS % (AUTO) 2.1 % (0.0-6.0); HEMATOCRIT 24 % (39-51); HEMOGLOBIN 8.1 g/dL (13.5-17.5); LYMPHOCYTES % (AUTO) 34.1 % (20.0-44.0); MEAN CORPUSCULAR HGB CONC 34 g/dl (31.0-36.0); MEAN CORPUSCULAR VOLUME 86 fL (80-96); MONOCYTES # (AUTO) 0.8 /CMM (0.1-1.30); MONOCYTES % (AUTO) 9.1 % (2.0-12.0); NEUTROPHILS # (AUTO) 4.9 /CMM (1.8-8.9); NEUTROPHILS % (AUTO) 54.3 % (43.0-81.0); PLATELET COUNT (AUTO) 274 /CMM (150-450); RDW COEFFICIENT OF VARIATION 14.2 (11.5-15.0); RED BLOOD CELL COUNT(AUTO) 2.83 MIL/uL (4.5-6.0); WHITE BLOOD COUNT (AUTO) 8.9 K/uL (4.3-11.0)
--- NOTE | 2017-06-26 04:00 | NUR ---
RN NOTES: MOST RECENT BM APPEARS CLEAR, WATERY IN CONSISTENCY AND YELLOWISH IN COLOR.
[2017-06-26] MEDS: AMOXICILLIN TRIHYDRATE 250 MG CAPSULE PO SCH ×3 (05:00→21:42)
[2017-06-26] MEDS: METRONIDAZOLE 500 MG TABLET PO SCH ×3 (05:00→21:42)
--- NOTE | 2017-06-26 06:46 | NUR ---
MS RN CLOSING NOTES: PATIENT IN BED, AOX4, ON ROOM AIR, BREATHING EVEN AND UNLABORED. APPEARS CALM AND IN NO DISTRESS. MAINTAINED ON NPO AFTER MIDNIGHT. RECENT BM MOSTLY CLEAR, WATERY AND LIGHT YELLOW IN COLOR. PIV OVER RFA G20 INTACT AND PATENT, INFUSING WELL WITH D5 1/2 NS RUNNING AT 75 ML/HR. DUE MEDS GIVEN. PROVIDED FOR COMFORT AND SAFETY. BED IN LOWEST AND LOCKED POSITION, SIDERAILS UP X 3, CALL LIGHT WITHIN REACH. WILL ENDORSE TO AM RN FOR SHAHZAD.
--- NOTE | 2017-06-26 07:30 | NUR ---
MS/RN Patient received Patient received from mine shifter. NPO at this time for colonoscopy. All consent forms signed and placed in front of chart. Bowel prep completed. All needs attended, will continue to monitor and ensure safety.
--- NOTE | 2017-06-26 07:40 | NUR ---
MS/RN Colonoscopy Patient off floor at this time in GI for colonoscopy.
[2017-06-26 08:00] VITALS: BP_SYST 147; BP_DIAS 86; BP_DIAS 96
--- NOTE | 2017-06-26 08:45 | NUR ---
MS/RN Post op Patient back in room following colonoscopy. Patient to resume diet after small bowel follow through.
[2017-06-26] MEDS: DOCUSATE SODIUM 100 MG CAPSULE PO SCH ×2 (09:00→16:30)
[2017-06-26] MEDS: PANTOPRAZOLE 40 MG VIAL IV SCH (09:00)
--- NOTE | 2017-06-26 10:00 | NUR ---
MS/RN SBFT Patient in radiology at this time for small bowel follow through.
[2017-06-26] MEDS ORDERED: DIATR MEGLU/DIATRIZOATE SODIUM 120 ML BOTTLE (GASTROGRAPHIN) ONE (10:25)
--- NOTE | 2017-06-26 12:10 | NUR ---
MS/RN Back in room Patient back in room follow initial section of test, will be taken back down to radiology department in one hour for final section of test. Remains NPO. ortho tech at bedside to draw 1230 H&H.
--- NOTE | 2017-06-26 12:25 | NUR ---
MS/RN S/B Jaelyn Burch CONTRACTING SPECIALIST Seen by CONTRACTING SPECIALIST - labs ordered for tomorrow.
[2017-06-26 12:52] LABS: BASOPHILS % (AUTO) 0.5 % (0.0-2.0); EOSINOPHILS % (AUTO) 1.2 % (0.0-6.0); HEMATOCRIT 28 % (39-51); HEMOGLOBIN 9.3 g/dL (13.5-17.5); LYMPHOCYTES # (AUTO) 2.4 /CMM (0.8-4.8); LYMPHOCYTES % (AUTO) 30.4 % (20.0-44.0); MEAN CORPUSCULAR HGB CONC 34 g/dl (31.0-36.0); MEAN CORPUSCULAR VOLUME 86 fL (80-96); MONOCYTES # (AUTO) 0.7 /CMM (0.1-1.30); MONOCYTES % (AUTO) 8.8 % (2.0-12.0); NEUTROPHILS # (AUTO) 4.8 /CMM (1.8-8.9); NEUTROPHILS % (AUTO) 59.1 % (43.0-81.0); PLATELET COUNT (AUTO) 341 /CMM (150-450); RDW COEFFICIENT OF VARIATION 14.4 (11.5-15.0); RED BLOOD CELL COUNT(AUTO) 3.19 MIL/uL (4.5-6.0)
[2017-06-26 13:01] LABS: CALCIUM, SERUM 8.5 mg/dL (8.5-10.1); CREATININE 0.9 mg/dL (0.6-1.3); MAGNESIUM 2.2 mg/dL (1.8-2.4); PHOSPHORUS 3.2 mg/dL (2.5-4.9)
--- NOTE | 2017-06-26 13:32 | NUR ---
MS/RN Stool collection Stool collected and sent for WBC.
--- NOTE | 2017-06-26 13:43 | NUR ---
MS/RN Diet change Per Hossein in radiology, patient no longer needs to remain NPO. Will resume regular diet previously ordered by Dr Rodriguez.
[2017-06-26 16:00] VITALS: BP 136/89
[2017-06-26 18:57] LABS: BASOPHILS % (AUTO) 0.5 % (0.0-2.0); EOSINOPHILS % (AUTO) 1.3 % (0.0-6.0); HEMATOCRIT 25 % (39-51); HEMOGLOBIN 8.1 g/dL (13.5-17.5); LYMPHOCYTES # (AUTO) 2.5 /CMM (0.8-4.8); LYMPHOCYTES % (AUTO) 33.6 % (20.0-44.0); MEAN CORPUSCULAR HGB CONC 33 g/dl (31.0-36.0); MEAN CORPUSCULAR VOLUME 86 fL (80-96); MONOCYTES # (AUTO) 0.7 /CMM (0.1-1.30); MONOCYTES % (AUTO) 9.3 % (2.0-12.0); NEUTROPHILS # (AUTO) 4.1 /CMM (1.8-8.9); NEUTROPHILS % (AUTO) 55.3 % (43.0-81.0); PLATELET COUNT (AUTO) 332 /CMM (150-450); RDW COEFFICIENT OF VARIATION 15.1 (11.5-15.0); RED BLOOD CELL COUNT(AUTO) 2.85 MIL/uL (4.5-6.0); WHITE BLOOD COUNT (AUTO) 7.5 K/uL (4.3-11.0)
--- NOTE | 2017-06-26 19:00 | NUR ---
MS/RN End note Patient remains in stable condition. SBFT resulted as negative, patient aware and remains frustrated that there is no answers as to why and where the bleeding is coming from. Reassurance given that all the appropriate testing was taking place. Blood drawn at 1830 for q6 hour H&H. Will continue to monitor and ensure safety. Will endorse to retail shift manager.
--- NOTE | 2017-06-26 19:30 | NUR ---
MS RN OPENING NOTES: PATIENT IN BED, AOX4, ON ROOM AIR, BREATHING EVEN AND UNLABORED. APPEARS CALM AND IN NO DISTRESS, DENIES PAIN. PATIENT ALSO STATES THAT HIS RECENT STOOLS HAVE BEEN WATERY, BUT NOT BLOODY. PIV OVER RFA G 20 INTACT AND PATENT TO FLUSH. REFUSES TO BE HOOKED TO IVF AT THIS TIME. PROVIDED FOR COMFORT AND SAFETY. BED IN LOWEST AND LOCKED POSITION, SIDERAILS UP X 3, CALL LIGHT WITHIN REACH. WILL CONT TO MONITOR.
[2017-06-26 20:00] VITALS: BP 135/97
[2017-06-27 03:06] LABS: BASOPHILS % (AUTO) 0.6 % (0.0-2.0); EOSINOPHILS % (AUTO) 2.3 % (0.0-6.0); HEMATOCRIT 23 % (39-51); HEMOGLOBIN 7.8 g/dL (13.5-17.5); LYMPHOCYTES # (AUTO) 2.7 /CMM (0.8-4.8); LYMPHOCYTES % (AUTO) 39.8 % (20.0-44.0); MEAN CORPUSCULAR HGB CONC 34 g/dl (31.0-36.0); MEAN CORPUSCULAR VOLUME 86 fL (80-96); MONOCYTES # (AUTO) 0.7 /CMM (0.1-1.30); MONOCYTES % (AUTO) 9.8 % (2.0-12.0); NEUTROPHILS # (AUTO) 3.2 /CMM (1.8-8.9); NEUTROPHILS % (AUTO) 47.5 % (43.0-81.0); PLATELET COUNT (AUTO) 325 /CMM (150-450); RDW COEFFICIENT OF VARIATION 15.6 (11.5-15.0); RED BLOOD CELL COUNT(AUTO) 2.67 MIL/uL (4.5-6.0); WHITE BLOOD COUNT (AUTO) 6.8 K/uL (4.3-11.0)
--- NOTE | 2017-06-27 03:15 | NUR ---
PATIENT'S HGB DECREASED TO 7.8 (FOR 0210 AM DRAW). CURRENT STANDING ORDER FOR PATIENT IS TO TRANSFUSE 1 UNIT PRBC IF HGB IS LESS THAN 8.0. LAST TYPE AND SCREEN FOR PATIENT WAS 06/23, PER BLOOD BANK, NEW TYPE AND SCREEN HAS TO BE REORDERED BEFORE PRBC UNIT CAN BE PREPARED FOR PATIENT. WAITING FOR TYPE AND SCREEN TO BE DRAWN.
--- NOTE | 2017-06-27 04:10 | NUR ---
LAB AT BEDSIDE FOR TYPE AND SCREEN.
[2017-06-27 04:49] LABS: BASOPHILS % (AUTO) 0.5 % (0.0-2.0); EOSINOPHILS % (AUTO) 2.1 % (0.0-6.0); HEMATOCRIT 26 % (39-51); HEMOGLOBIN 8.6 g/dL (13.5-17.5); LYMPHOCYTES # (AUTO) 2.8 /CMM (0.8-4.8); LYMPHOCYTES % (AUTO) 33.3 % (20.0-44.0); MEAN CORPUSCULAR HGB CONC 34 g/dl (31.0-36.0); MEAN CORPUSCULAR VOLUME 87 fL (80-96); MONOCYTES # (AUTO) 0.9 /CMM (0.1-1.30); MONOCYTES % (AUTO) 10.4 % (2.0-12.0); NEUTROPHILS # (AUTO) 4.5 /CMM (1.8-8.9); NEUTROPHILS % (AUTO) 53.7 % (43.0-81.0); PLATELET COUNT (AUTO) 369 /CMM (150-450); RDW COEFFICIENT OF VARIATION 15.7 (11.5-15.0); RED BLOOD CELL COUNT(AUTO) 2.97 MIL/uL (4.5-6.0); WHITE BLOOD COUNT (AUTO) 8.4 K/uL (4.3-11.0)
[2017-06-27 04:57] LABS: CALCIUM, SERUM 8.5 mg/dL (8.5-10.1); MAGNESIUM 2.2 mg/dL (1.8-2.4); PHOSPHORUS 3.3 mg/dL (2.5-4.9); POTASSIUM 3.6 mmol/L (3.5-5.1)
[2017-06-27] MEDS: AMOXICILLIN TRIHYDRATE 250 MG CAPSULE PO SCH ×3 (04:59→20:08)
[2017-06-27] MEDS: METRONIDAZOLE 500 MG TABLET PO SCH ×3 (04:59→20:08)
--- NOTE | 2017-06-27 05:13 | NUR ---
NEW HGB RESULT FOR 399 WAS 8.6. HELD BLOOD TRANSFUSION FOR NOW. REPEAT H/H AT 1200 NOON. PATIENT VERBALIZED UNDERSTANDING.
--- NOTE | 2017-06-27 07:26 | NUR ---
MS RN CLOSING NOTES: PATIENT IN BED, AOX4, ON ROOM AIR, BREATHING EVEN AND UNLABORED. APPEARS CALM AND IN NO DISTRESS. DENIES PAIN. NO HEMATOCHEZIA NOTED THROUGH SHIFT. PIV OVER RFA G20 INTACT AND PATENT. DUE MEDS GIVEN. PROVIDED FOR COMFORT AND SAFETY. BED IN LOWEST AND LOCKED POSITION, SIDERAILS UP X 3, CALL LIGHT WITHIN REACH. WILL ENDORSE TO AM RN FOR SHAHZAD
--- NOTE | 2017-06-27 07:30 | NUR ---
MS/RN Patient received Patient received from medical data entry clerk. No active signs of GI bleeding, patient aware to notify nursing staff of any bowel movement. Safety measures in place, will continue to monitor and ensure safety.
[2017-06-27 08:00] VITALS: BP_SYST 148; BP_DIAS 89; BP_DIAS 99
[2017-06-27] MEDS: DOCUSATE SODIUM 100 MG CAPSULE PO SCH ×2 (08:29→16:15)
[2017-06-27] MEDS: PANTOPRAZOLE 40 MG VIAL IV SCH (08:32)
[2017-06-27 12:31] LABS: BASOPHILS % (AUTO) 0.5 % (0.0-2.0); EOSINOPHILS % (AUTO) 1.7 % (0.0-6.0); HEMATOCRIT 24 % (39-51); HEMOGLOBIN 7.9 g/dL (13.5-17.5); LYMPHOCYTES % (AUTO) 28.5 % (20.0-44.0); MEAN CORPUSCULAR HGB CONC 33 g/dl (31.0-36.0); MEAN CORPUSCULAR VOLUME 87 fL (80-96); MONOCYTES # (AUTO) 0.7 /CMM (0.1-1.30); MONOCYTES % (AUTO) 9.6 % (2.0-12.0); NEUTROPHILS # (AUTO) 4.3 /CMM (1.8-8.9); NEUTROPHILS % (AUTO) 59.7 % (43.0-81.0); PLATELET COUNT (AUTO) 353 /CMM (150-450); RDW COEFFICIENT OF VARIATION 15.2 (11.5-15.0); RED BLOOD CELL COUNT(AUTO) 2.76 MIL/uL (4.5-6.0); WHITE BLOOD COUNT (AUTO) 7.1 K/uL (4.3-11.0)
--- NOTE | 2017-06-27 12:45 | NUR ---
MS/RN Medications Lunch time medications administered as ordered.
--- NOTE | 2017-06-27 13:00 | NUR ---
MS/RN H&H H&H 7.11/27. Lyle Jin made aware, orders given. -Hb <7.5 - transfuse one unit PRBC and notify
[2017-06-27] MEDS: HYDROCORTISONE ACETATE 25 MG/SUPP.RECT SUPP.RECT RC SCH (15:30)
--- NOTE | 2017-06-27 15:45 | NUR ---
MS/RN S/B Lyle Jin ELECTRONICS PARTS SALES REPRESENTATIVE Seen by ELECTRONICS PARTS SALES REPRESENTATIVE - to continue to monitor H&H, if stable, possible discharge tomorrow.
[2017-06-27 16:00] VITALS: BP 147/90
--- NOTE | 2017-06-27 17:53 | NUR ---
MS/RN S/B Cathy (GI MARBLE POLISHER) Seen by MARBLE POLISHER - patient sleeping when MARBLE POLISHER on floor, made aware that patient remains very frustrated that he has not been seen by MD and only MARBLE POLISHER's. Stated that she would inform Dr Rodriguez and ask him to call either patient or patients . Per notes, will needs to have outpatient endoscopy capsule study arranged.
--- NOTE | 2017-06-27 18:27 | NUR ---
MS/RN End note No changes in care at this time, remains without rectal bleeding. Will endorse to levelman.
--- NOTE | 2017-06-27 19:30 | NUR ---
MS RN OPENING NOTES: RECEIVED PT WALKING OUT OF ROOM AND ASKING FOR HOT WATER FOR HIS TEA. PT IS A/OX4. IV REMAINS IN TACT. WALKED BACK WITH PT TO ROOM. CALL LIGHT WITHIN PT'S REACH. BED KEPT IN LOW, LOCKED POSITION, AND SIDE RAILS X 2UP. WILL CONTINUE TO MONITOR PT.
[2017-06-27 19:59] LABS: BASOPHILS # (AUTO) 0.1 /CMM (0.0-0.2); BASOPHILS % (AUTO) 0.8 % (0.0-2.0); EOSINOPHILS % (AUTO) 2.3 % (0.0-6.0); HEMATOCRIT 23 % (39-51); HEMOGLOBIN 7.8 g/dL (13.5-17.5); LYMPHOCYTES # (AUTO) 2.2 /CMM (0.8-4.8); LYMPHOCYTES % (AUTO) 32.5 % (20.0-44.0); MEAN CORPUSCULAR HGB CONC 34 g/dl (31.0-36.0); MEAN CORPUSCULAR VOLUME 86 fL (80-96); MONOCYTES # (AUTO) 0.6 /CMM (0.1-1.30); MONOCYTES % (AUTO) 8.7 % (2.0-12.0); NEUTROPHILS # (AUTO) 3.7 /CMM (1.8-8.9); NEUTROPHILS % (AUTO) 55.7 % (43.0-81.0); PLATELET COUNT (AUTO) 380 /CMM (150-450); RDW COEFFICIENT OF VARIATION 14.6 (11.5-15.0); RED BLOOD CELL COUNT(AUTO) 2.66 MIL/uL (4.5-6.0); WHITE BLOOD COUNT (AUTO) 6.9 K/uL (4.3-11.0)
[2017-06-27 20:00] VITALS: BP 137/90
[2017-06-28 00:48] LABS: BASOPHILS % (AUTO) 0.6 % (0.0-2.0); EOSINOPHILS % (AUTO) 2.2 % (0.0-6.0); HEMATOCRIT 24 % (39-51); LYMPHOCYTES % (AUTO) 39.9 % (20.0-44.0); MEAN CORPUSCULAR HGB CONC 34 g/dl (31.0-36.0); MEAN CORPUSCULAR VOLUME 87 fL (80-96); MONOCYTES # (AUTO) 0.7 /CMM (0.1-1.30); MONOCYTES % (AUTO) 8.9 % (2.0-12.0); NEUTROPHILS # (AUTO) 3.7 /CMM (1.8-8.9); NEUTROPHILS % (AUTO) 48.4 % (43.0-81.0); PLATELET COUNT (AUTO) 379 /CMM (150-450); RDW COEFFICIENT OF VARIATION 15.1 (11.5-15.0); RED BLOOD CELL COUNT(AUTO) 2.75 MIL/uL (4.5-6.0); WHITE BLOOD COUNT (AUTO) 7.6 K/uL (4.3-11.0)
[2017-06-28] MEDS: HYDROCORTISONE ACETATE 25 MG/SUPP.RECT SUPP.RECT RC SCH ×2 (02:35→16:35)
[2017-06-28] MEDS: METRONIDAZOLE 500 MG TABLET PO SCH ×3 (05:45→21:23)
[2017-06-28] MEDS: AMOXICILLIN TRIHYDRATE 250 MG CAPSULE PO SCH ×3 (05:45→21:23)
[2017-06-28 07:21] LABS: BASOPHILS % (AUTO) 0.6 % (0.0-2.0); EOSINOPHILS % (AUTO) 2.4 % (0.0-6.0); HEMATOCRIT 26 % (39-51); HEMOGLOBIN 8.7 g/dL (13.5-17.5); LYMPHOCYTES # (AUTO) 2.8 /CMM (0.8-4.8); LYMPHOCYTES % (AUTO) 35.9 % (20.0-44.0); MEAN CORPUSCULAR HGB CONC 34 g/dl (31.0-36.0); MEAN CORPUSCULAR VOLUME 87 fL (80-96); MONOCYTES # (AUTO) 0.7 /CMM (0.1-1.30); MONOCYTES % (AUTO) 8.6 % (2.0-12.0); NEUTROPHILS # (AUTO) 4.1 /CMM (1.8-8.9); NEUTROPHILS % (AUTO) 52.5 % (43.0-81.0); PLATELET COUNT (AUTO) 432 /CMM (150-450); RDW COEFFICIENT OF VARIATION 15.5 (11.5-15.0); RED BLOOD CELL COUNT(AUTO) 2.98 MIL/uL (4.5-6.0); WHITE BLOOD COUNT (AUTO) 7.8 K/uL (4.3-11.0)
--- NOTE | 2017-06-28 07:46 | NUR ---
MS RN CLOSING NOTES: ALL NEEDS WERE ATTENDED AND ANTICIPATED FOR. PT ON ROOM AIR AND TOLERATING WELL. IV REMAINS INTACT. CALL LIGHT WITHIN PT'S REACH. BED KEPT IN LOW, LOCKED POSITION, AND SIDE RAILS X 2UP. AT BEDSIDE. ENDORSED TO AM NURSE FOR SHAHZAD.
[2017-06-28 08:00] VITALS: BP 144/92
[2017-06-28] MEDS: DOCUSATE SODIUM 100 MG CAPSULE PO SCH ×2 (08:07→16:35)
[2017-06-28] MEDS: PANTOPRAZOLE 40 MG VIAL IV SCH (08:09)
[2017-06-28 12:26] LABS: BASOPHILS % (AUTO) 0.5 % (0.0-2.0); EOSINOPHILS % (AUTO) 1.4 % (0.0-6.0); HEMATOCRIT 24 % (39-51); HEMOGLOBIN 8.1 g/dL (13.5-17.5); LYMPHOCYTES # (AUTO) 2.1 /CMM (0.8-4.8); LYMPHOCYTES % (AUTO) 33.1 % (20.0-44.0); MEAN CORPUSCULAR HGB CONC 33 g/dl (31.0-36.0); MEAN CORPUSCULAR VOLUME 86 fL (80-96); MONOCYTES # (AUTO) 0.6 /CMM (0.1-1.30); MONOCYTES % (AUTO) 9.2 % (2.0-12.0); NEUTROPHILS # (AUTO) 3.6 /CMM (1.8-8.9); NEUTROPHILS % (AUTO) 55.8 % (43.0-81.0); PLATELET COUNT (AUTO) 410 /CMM (150-450); RDW COEFFICIENT OF VARIATION 15.1 (11.5-15.0); WHITE BLOOD COUNT (AUTO) 6.5 K/uL (4.3-11.0)
[2017-06-28 16:00] VITALS: BP 148/95
[2017-06-28 18:33] LABS: BASOPHILS % (AUTO) 0.5 % (0.0-2.0); EOSINOPHILS % (AUTO) 1.8 % (0.0-6.0); HEMATOCRIT 25 % (39-51); HEMOGLOBIN 8.6 g/dL (13.5-17.5); LYMPHOCYTES # (AUTO) 2.8 /CMM (0.8-4.8); LYMPHOCYTES % (AUTO) 36.8 % (20.0-44.0); MEAN CORPUSCULAR HGB CONC 35 g/dl (31.0-36.0); MEAN CORPUSCULAR VOLUME 86 fL (80-96); MONOCYTES # (AUTO) 0.7 /CMM (0.1-1.30); MONOCYTES % (AUTO) 9.2 % (2.0-12.0); NEUTROPHILS # (AUTO) 3.9 /CMM (1.8-8.9); NEUTROPHILS % (AUTO) 51.7 % (43.0-81.0); PLATELET COUNT (AUTO) 455 /CMM (150-450); RDW COEFFICIENT OF VARIATION 14.5 (11.5-15.0); RED BLOOD CELL COUNT(AUTO) 2.92 MIL/uL (4.5-6.0); WHITE BLOOD COUNT (AUTO) 7.5 K/uL (4.3-11.0)
--- NOTE | 2017-06-28 19:20 | NUR ---
RN CLOSING NOTES: PATIENT AOX4. NONLABORED BREATHING NOTED ON ROOM AIR. NO SIGNS OF DISTRESS. IV SITE ON RIGHT FOREARM PATENT AND INTACT. PATIENT STABLE THOROUGHT SHIFT. NO SIGNS OF BLEEDING NOTED. NO NAUSEA NOR VOMITING NOTED. BED IN LOWEST ABENA POSITION. CALL LIGHT WITHIN REACH ENDORSED TO NEXT SHIFT
[2017-06-29 00:39] LABS: BASOPHILS % (AUTO) 0.6 % (0.0-2.0); EOSINOPHILS % (AUTO) 2.4 % (0.0-6.0); HEMATOCRIT 25 % (39-51); HEMOGLOBIN 8.5 g/dL (13.5-17.5); LYMPHOCYTES # (AUTO) 2.7 /CMM (0.8-4.8); LYMPHOCYTES % (AUTO) 38.8 % (20.0-44.0); MEAN CORPUSCULAR HGB CONC 34 g/dl (31.0-36.0); MEAN CORPUSCULAR VOLUME 85 fL (80-96); MONOCYTES # (AUTO) 0.6 /CMM (0.1-1.30); MONOCYTES % (AUTO) 8.8 % (2.0-12.0); NEUTROPHILS # (AUTO) 3.5 /CMM (1.8-8.9); NEUTROPHILS % (AUTO) 49.4 % (43.0-81.0); PLATELET COUNT (AUTO) 456 /CMM (150-450); RDW COEFFICIENT OF VARIATION 14.3 (11.5-15.0); RED BLOOD CELL COUNT(AUTO) 2.93 MIL/uL (4.5-6.0)
[2017-06-29] MEDS: HYDROCORTISONE ACETATE 25 MG/SUPP.RECT SUPP.RECT RC SCH (03:30)
[2017-06-29] MEDS: METRONIDAZOLE 500 MG TABLET PO SCH (05:29)
[2017-06-29] MEDS: AMOXICILLIN TRIHYDRATE 250 MG CAPSULE PO SCH (05:29)
--- NOTE | 2017-06-29 06:30 | NUR ---
N NOTES PATIENT ASLEEP, EASILY AROUSABLE. RESPIRATIONS EVEN. NO SIGNS OF PAIN NOTED. DUE MEDS GIVEN WITH NO ASE NOTED. NEEDS ATTENDED. SAFETY PRECAUTIONS AND COMFORT MEASURES IN PLACE. WILL GIVE REPORT TO DAY SHIFT FOR CONTINUITY OF CARE.
[2017-06-29 07:20] LABS: BASOPHILS % (AUTO) 0.6 % (0.0-2.0); EOSINOPHILS % (AUTO) 2.6 % (0.0-6.0); HEMATOCRIT 25 % (39-51); HEMOGLOBIN 8.5 g/dL (13.5-17.5); LYMPHOCYTES # (AUTO) 2.9 /CMM (0.8-4.8); LYMPHOCYTES % (AUTO) 39.9 % (20.0-44.0); MEAN CORPUSCULAR HGB CONC 34 g/dl (31.0-36.0); MEAN CORPUSCULAR VOLUME 86 fL (80-96); MONOCYTES # (AUTO) 0.7 /CMM (0.1-1.30); MONOCYTES % (AUTO) 9.7 % (2.0-12.0); NEUTROPHILS # (AUTO) 3.5 /CMM (1.8-8.9); NEUTROPHILS % (AUTO) 47.2 % (43.0-81.0); PLATELET COUNT (AUTO) 467 /CMM (150-450); RED BLOOD CELL COUNT(AUTO) 2.88 MIL/uL (4.5-6.0); WHITE BLOOD COUNT (AUTO) 7.3 K/uL (4.3-11.0)
[2017-06-29 08:00] VITALS: BP 147/98
[2017-06-29] MEDS: DOCUSATE SODIUM 100 MG CAPSULE PO SCH (08:44)
[2017-06-29] MEDS: PANTOPRAZOLE 40 MG VIAL IV SCH (08:45)
[2017-06-29] MEDS ORDERED: METR500T PO ×2 (10:05→10:13)
[2017-06-29] MEDS ORDERED: AMOX250C PO ×2 (10:05→10:13)
[2017-06-29] MEDS ORDERED: HYDR25SU13 RC (10:05)
[2017-06-29] MEDS ORDERED: PANT40TA2 PO ×2 (10:05→10:13)
[2017-06-29] MEDS ORDERED: CLAR500T PO (10:13)
--- NOTE | 2017-06-29 11:51 | NUR ---
PATIENT DISCHARGED HOME PER ADA HOUGH'S, SERVICE COUNSELOR, ORDERS. PATIENT STABLE THROUGHOUT SHIFT. NONLABORED BREATHING NOTED ON ROOM AIR. DENYING CHEST PAIN. NO SIGNS OF BLEEDING NOTED DURING SHIFT. PATIENT DENYING DIZZINESS. PATIENT EDUCATED ON EXISTCARE AND PRESCRIPTION MEDICATIONS. PRESCRIPTION GIVEN TO PATIENT. ALL VALUABLES GIVEN TO PATIENT. PATIENT LEFT STABLE WITH . ACCOMPANIED TO CAR BY STAFF MEMBER.
== END 2017-06-29 11:33 | disposition home or self-care (01) | DRG 240 ==
LOC: ER 09:42 → MEDSG2 12:04
PROVIDERS: ADMIT Registered Nurse; ATTEND Registered Nurse
PROC: 30233N1 Transfusion of Nonautologous Red Blood Cells into Peripheral Vein, Percutaneous Approach (ICD-10-PCS; principal; 2017-06-23)
PROC: 0DB68ZX Excision of Stomach, Via Natural or Artificial Opening Endoscopic, Diagnostic (ICD-10-PCS; 2017-06-25)
PROC: 0DBH8ZZ Excision of Cecum, Via Natural or Artificial Opening Endoscopic (ICD-10-PCS; 2017-06-25)
DX: C17.0 Malignant neoplasm of duodenum (principal); K29.51 Unspecified chronic gastritis with bleeding; K76.0 Fatty (change of) liver, not elsewhere classified; D62 Acute posthemorrhagic anemia; E83.42 Hypomagnesemia; K57.92 Diverticulitis of intestine, part unspecified, without perforation or abscess without bleeding; K64.8 Other hemorrhoids; I10 Essential (primary) hypertension; B96.81 Helicobacter pylori [H. pylori] as the cause of diseases classified elsewhere; F17.210 Nicotine dependence, cigarettes, uncomplicated; D50.9 Iron deficiency anemia, unspecified; D12.0 Benign neoplasm of cecum; E66.9 Obesity, unspecified; Z68.30 Body mass index [BMI] 30.0-30.9, adult; K40.20 Bilateral inguinal hernia, without obstruction or gangrene, not specified as recurrent; K44.9 Diaphragmatic hernia without obstruction or gangrene
CPT/HCPCS: 36415; 74250-TC; 80048-TC; 82378; 83735-TC; 84100-TC; 85025-TC; 85027-TC; 85730-TC; 86850-TC; 86921-TC; 87081-TC; 87086-TC; 88305-TC; 88313-TC; 88342; 89055; A4606; A9560; C9113; J1642; J2704; J3475; J3490; J7040; J7050; P9016-BL; Q9963; Q9967; Z7610